=== PATIENT | female | born 1950 | race Caucasian/White ===

== ENCOUNTER → 2020-12-06 | Outpatient (CLI) | payer MEDICARE ==
[~2020-12-06] MED LIST: ALLOPURINOL300 MG PO; AMLODIPINE BESYL5 MG PO; ASPIRIN81 MG PO; ATORVASTATIN CA20 MG PO; HYDRALAZINE HC100 MG PO; KLOR-CON 1010 MEQ PO; LOSARTAN POTASS25 MG PO; MECLIZINE HCL12.5 MG PO; MELOXICAM7.5 MG PO; SIMVASTATIN40 MG PO; TRIAMTERENE-HCTZ1 EA PO; VERAPAMIL ER120 MG PO
[2020-12-06 13:03] LABS: BASOPHILS % 0.5 % (0.0-1.0); EOSINOPHILS # (AUTO) 0.1 (0.0-0.4); EOSINOPHILS % 1.6 % (0.0-6.0); HEMATOCRIT 34.2 % (34.2-44.1); HEMOGLOBIN 10.9 g/dL (12.0-16.0); LYMPHOCYTES % 15.6 % (18.0-39.1); MEAN CORPUSCULAR HEMOGLOBIN 28.6 pg (28-32); MEAN CORPUSCULAR HGB CONC 31.9 g/dL (31-35); MEAN CORPUSCULAR VOLUME 89.8 fL (81-99); MONOCYTES # (AUTO) 0.5 (0.2-0.8); MONOCYTES % 8.5 % (4.4-11.3); NEUTROPHILS # (AUTO) 4.6 (2.1-6.9); NEUTROPHILS % 73.3 % (38.7-80.0); PLATELET COUNT 233 x10e3/uL (140-360); RED BLOOD COUNT 3.81 x10e6/uL (3.6-5.1)
== END ==
LOC: DX 21:33 → EDSTATUS 12-10 12:30
PROVIDERS: ATTEND Internal Medicine Gastroenterology
DX: Z01.812 Encounter for preprocedural laboratory examination (principal); Z01.818 Encounter for other preprocedural examination; Z20.822 Contact with and (suspected) exposure to COVID-19; K59.00 Constipation, unspecified; R12 Heartburn
CPT/HCPCS: 36415; 85025; 93005; U0002

== ENCOUNTER → 2021-01-24 | Day surgery (SDC) | payer MEDICARE ==
[2021-01-21 10:41] LABS: BASOPHILS # (AUTO) 0.1 (0.0-0.1); EOSINOPHILS # (AUTO) 0.1 (0.0-0.4); EOSINOPHILS % 2.5 % (0.0-6.0); HEMATOCRIT 37.3 % (34.2-44.1); HEMOGLOBIN 12.3 g/dL (12.0-16.0); LYMPHOCYTES # (AUTO) 0.8 (1.0-3.2); MONOCYTES # (AUTO) 0.5 (0.2-0.8); MONOCYTES % 9.6 % (4.4-11.3); NEUTROPHILS # (AUTO) 3.6 (2.1-6.9); NEUTROPHILS % 70.3 % (38.7-80.0); PLATELET COUNT 239 x10e3/uL (140-360); RED BLOOD COUNT 4.24 x10e6/uL (3.6-5.1); RED CELL DISTRIBUTION WIDTH 14.3 % (11.7-14.4)
[~2021-01-24] MED LIST changes: +FENTANYL CITRATE/PF 100MCG/2 ML INJ ONE; +ISOSORBIDE MONO10 MG PO
[2021-01-24 13:15] VITALS: BP 125/62
== END | disposition home or self-care (01) ==
LOC: OR 09:50
PROVIDERS: ATTEND Internal Medicine Gastroenterology
DX: K52.9 Noninfective gastroenteritis and colitis, unspecified (principal); D12.2 Benign neoplasm of ascending colon; D12.3 Benign neoplasm of transverse colon; D12.4 Benign neoplasm of descending colon; K29.40 Chronic atrophic gastritis without bleeding; K59.00 Constipation, unspecified; K20.90 Esophagitis, unspecified without bleeding; K21.9 Gastro-esophageal reflux disease without esophagitis; K44.9 Diaphragmatic hernia without obstruction or gangrene; K57.30 Diverticulosis of large intestine without perforation or abscess without bleeding; K64.8 Other hemorrhoids; G47.33 Obstructive sleep apnea (adult) (pediatric); E78.5 Hyperlipidemia, unspecified; M10.9 Gout, unspecified; I48.91 Unspecified atrial fibrillation; I25.10 Atherosclerotic heart disease of native coronary artery without angina pectoris; I11.0 Hypertensive heart disease with heart failure; I50.9 Heart failure, unspecified; Z88.6 Allergy status to analgesic agent; Z01.812 Encounter for preprocedural laboratory examination; Z79.82 Long term (current) use of aspirin; Z98.61 Coronary angioplasty status
CPT/HCPCS: 36415; 43239; 45380; 45385; 85025; 88305; 88312; J3010; 45378; 45384

== ENCOUNTER 2021-02-19 17:36 | Emergency (ER) | payer MEDICARE ==
[~2021-02-19] VITALS: Ht 157.5 cm; Wt 105.2 kg
[~2021-02-19 17:36] MED LIST changes: -FENTANYL CITRATE/PF 100MCG/2 ML INJ ONE
[2021-02-19] MEDS ORDERED: ACETAMINOPHEN 325 MG TAB PO ONE (19:30)
== END 2021-02-19 22:30 | disposition home or self-care (01) ==
LOC: ER 19:34
DX: R05 Cough (principal); R50.9 Fever, unspecified
CPT/HCPCS: 71045; 99283

== ENCOUNTER → 2021-05-21 | Outpatient (CLI) | payer MEDICARE | LOC: US 08:16 | PROVIDERS: ATTEND Family Medicine | DX: R07.89 Other chest pain (principal); R10.9 Unspecified abdominal pain | CPT/HCPCS: 71250; 76700 ==

== ENCOUNTER 2022-01-12 14:55 | Emergency (ER) | payer MEDICARE ==
[~2022-01-12] VITALS: Ht 157.5 cm; Wt 105.2 kg
[2022-01-12 15:16] LABS: BASOPHILS % 0.3 % (0.0-1.0); EOSINOPHILS # (AUTO) 0.1 (0.0-0.4); EOSINOPHILS % 1.2 % (0.0-6.0); HEMOGLOBIN 7.8 g/dL (12.0-16.0); LYMPHOCYTES # (AUTO) 0.3 (1.0-3.2); LYMPHOCYTES % 5.2 % (18.0-39.1); MEAN CORPUSCULAR HGB CONC 31.2 g/dL (31-35); MEAN CORPUSCULAR VOLUME 86.5 fL (81-99); MONOCYTES # (AUTO) 0.4 (0.2-0.8); MONOCYTES % 5.4 % (4.4-11.3); NEUTROPHILS # (AUTO) 5.7 (2.1-6.9); NEUTROPHILS % 87.7 % (38.7-80.0); PLATELET COUNT 294 x10e3/uL (140-360); RED BLOOD COUNT 2.89 x10e6/uL (3.6-5.1); RED CELL DISTRIBUTION WIDTH 18.6 % (11.7-14.4)
[2022-01-12 15:32] LABS: INR 1.03; PROTHROMBIN TIME 14.4 seconds (11.9-14.5)
[2022-01-12 15:33] LABS: PARTIAL THROMBOPLASTIN TIME 40.5 seconds (23.8-35.5)
[2022-01-12 15:37] LABS: ALBUMIN 3.2 g/dL (3.5-5.0); ALBUMIN/GLOBULIN RATIO 0.7 (0.8-2.0); ANION GAP 18.8 mmol/L (8-16); CALCIUM 8.6 mg/dL (8.4-10.2); CREATININE, SERUM 1.54 mg/dL (0.57-1.11); POTASSIUM 3.8 mmol/L (3.5-5.1)
[2022-01-12 15:43] LABS: CREATINE KINASE MB 0.2 ng/mL (0-5.0)
[2022-01-12] MEDS ORDERED: SUCRALFATE1 GM PO (16:16)
[2022-01-12] MEDS ORDERED: COREG12.5 MG PO (16:16)
[2022-01-12] MEDS ORDERED: TRIAMCINOLONE A15 G1 TOP (16:16)
[2022-01-12] MEDS ORDERED: COLCRYS0.6 MG PO (16:16)
[2022-01-12] MEDS ORDERED: PANTOPRAZOLE SO40 MG PO (16:16)
[2022-01-12] MEDS ORDERED: FUROSEMIDE40 MG PO (16:16)
[2022-01-12] MEDS ORDERED: AUGMENTIN125 MG/51 PO (16:16)
[2022-01-12] MEDS ORDERED: SODIUM CHLORIDE 0.9% 1000ML 1,000 ML IV ONE (17:15)
[2022-01-12] MEDS ORDERED: SODIUM CHLORIDE 0.9% 1000ML 1,000 ML ONE (17:29)
[2022-01-12 21:22] VITALS: BP 126/53
[2022-01-12] MEDS ORDERED: IOPAMIDOL 370 MG/ML 100 ML INFUS..BTL INJ ONE (21:31)
== END 2022-01-12 21:20 | disposition home or self-care (01) ==
LOC: ER 15:50
DX: R07.89 Other chest pain (principal); D64.9 Anemia, unspecified; I51.7 Cardiomegaly; M25.512 Pain in left shoulder; I10 Essential (primary) hypertension; E78.5 Hyperlipidemia, unspecified; I25.10 Atherosclerotic heart disease of native coronary artery without angina pectoris; M10.9 Gout, unspecified; Z20.822 Contact with and (suspected) exposure to COVID-19
CPT/HCPCS: 36415; 71045; 71260; 80053; 82550; 82553; 84484; 85025; 85379; 85610; 85730; 86850; 86900; 93005; 99284; J7030; Q9967; U0002